=== PATIENT | female | born 1965 ===

== ENCOUNTER → 2023-10-31 | Outpatient (CLI) | payer OTHER ==
--- NOTE | 2023-11-02 09:42 | CTL ---
EXAMINATION TYPE: CT Low Dose Lung DATE OF EXAM: 10/31/2023 3:48 PM CLINICAL INDICATION:Female, 58 years old with history of Z12.2 LUNG SCREENING; Former smoker, quit x2 mo. 1.5 PPD x40yrs. , history of tobacco use. COMPARISON: None. TECHNIQUE: Multiple axial non-contrast scans were obtained from approximately the lung apices through the upper abdomen. Coronal and sagittal reformatted images were obtained. Low dose technique was uti lized. CT DLP: 67.0 mGycm, Automated exposure control for dose reduction was used. CT Contrast: Contrast used: None Oral contrast used: None FINDINGS: ======== Lack of intravenous contrast and low dose technique limits the evaluation of the vascular and soft ti ssue structures. LUNGS: No evidence of pulmonary fibrosis. No evidence of focal consolidation, pneumothorax or pleural effusion. Centrilobular emphysema changes. Nodules: RUL: Calcified granuloma anteriorly series 4 image 100 RML: 3 mm series 5 image 38. RLL: None. ROBEL: Suspected scarring changes series 5 image 10r 3 mm series 5 image 38, 3 mm image 38 LLL: 2 mm image 47. AIRWAY: Patent and unremarkable. HEART: Size within normal limits. MEDIASTINUM: No gross evidence of adenopathy. VASCULATURE: No aortic aneurysm. MUSCULOSKELETAL: No acute osseous abnormalities SOFT TISSUES/LYMPH NODES: Unremarkable. LOWER NECK: No significant findings. UPPER ABDOMEN: Right renal cyst measuring up to 43 mm. IMPRESSION: 1. No clinically significant pulmonary nodules. 2. Moderate emphysema. CT LUNG RAD AND CT CHEST RECOMMENDATION: Lung-Rad 2 Benign Appearance or Behavior: Continue annual sc reening with LDCT in 12 months. S Modifier (other clinically significant findings): None Recommend smoking cessation (if current smoker), or continuation of smoking cessation (if prior smoke r). Annual screening for lung cancer with low-dose computed tomography is recommended in adults ages 55 to 77 years who have a 30 pack-year smoking history and currently smoke or have quit within the pa st 15 years. Screening should be discontinued once a person has not smoked for 15 years or develops a health problem that substantially limits life expectancy or the ability or willingness to have curat madelyn lung surgery. Lung rads 2021 [email or web address]
--- NOTE | 2023-11-04 10:51 | MM ---
Reason for Exam: Screening (asymptomatic). Patient History: Patient has no children. Postmenopausal. Risk Values: Paulette 5 year model risk: 1.4%. NCI Lifetime model risk: 7.8%. Tissue Density: The breasts are heterogeneously dense, which may obscure small masses. Findings: Analyzed By CAD. Right breast: There is no suspicious group of microcalcifications or new suspicious mass. Left breast: There is no suspicious group of microcalcifications or new suspicious mass. Overall Assessment: Negative, BI-RAD 1 Management: Screening Mammogram of both breasts in [address] [facility] will attempt to contact patient to return for supplemental views and ultrasound if indicated. Patient should continue monthly self-breast exams. A clinical breast exam by your physician is recommended on an annual basis. This exam should not preclude additional follow-up of suspicious palpable abnormalities. Note on Paulette scores and lifetime risk: 1. A Paulette score greater than 3% is considered moderate risk. If this is the case, consider specialist referral to assess eligibility for a risk reducing agent. 2. If overall lifetime risk for the development of breast cancer is 20% or higher, the patient may qualify for future screening with alternating mammogram and breast MRI. Electronically signed and approved by: Didier Gabriel DO
== END | disposition home or self-care (01) ==
LOC: RADMAMWWP 15:01
PROVIDERS: ATTEND Family Medicine
DX: Z12.31 Encounter for screening mammogram for malignant neoplasm of breast (principal); R92.333 Mammographic heterogeneous density, bilateral breasts; Z78.0 Asymptomatic menopausal state; J43.9 Emphysema, unspecified
CPT/HCPCS: 71271; 77067

== ENCOUNTER → 2023-11-04 | Outpatient (CLI) | payer OTHER ==
--- NOTE | 2023-11-04 18:30 | CA ---
Exercise Stress Test Report Name: Bryanna Peralta Exam Date: 11/04/2023 08:54 Exam Location: [place] Stress Ht (in): 60 Wt (lb): 128 BSA: 1.54 Ordering Phys: Ramses Ivan MD Referring Phys: Karen Palacios PAC Technologist: Parminder Dover Age: 58 Gender: F : 1965 Procedure CPT: Indications: R07.89 chest pain ICD-10 Codes: Patient History: Medications: Meds past 24 hrs: Pretest Chest Pain: STRESS TEST Esau Protocol Exercise Duration (min:sec): 06:[address] Depressions (mm): Angina Score: Polanco Score: Resting HR (bpm): 90 Peak HR (bpm): 143 Resting BP (mmHg): 98 / 65 Peak BP (mmHg): 173 / 66 MPHR: 162 Target HR: 138 % MPHR: 88 METS: 7.4 Total Dose: Peak Dose: Atropine: Double Product: 53310 BP Response: Stress Termination: Reached target heart rate Stress Symptoms: No chest pain or symptoms Stress Summary: ECG ANALYSIS Resting ECG: Stress ECG: CONCLUSIONS Average exercise capacity No ECG evidence for ischemia Normal heart rate and blood pressure response No symptoms Impression no ECG evidence for ischemia Dr. David Thorpe MD (Electronically Signed) Final Date: 04 November 2023 18:29
== END | disposition home or self-care (01) ==
LOC: RADNMMAIN 08:18
PROVIDERS: ATTEND Family Medicine
DX: R07.89 Other chest pain (principal)
CPT/HCPCS: 93017

== ENCOUNTER 2023-12-06 12:20 | Day surgery (SDC) | payer OTHER ==
[2023-12-06 13:22] VITALS: TEMP 97.8
[2023-12-06] MEDS: IV FLUID CONTINUATION 1,000 ML IV ONE (13:26)
[2023-12-06] MEDS: LACTATED RINGERS 1,000 ML IV SCH (13:28)
[2023-12-06] MEDS ORDERED: PROPOFOL 10 MG/ML 20 ML VIAL IV ONE (14:44)
--- NOTE | 2023-12-06 15:02 | P.PCN ---
Date of Procedure: 12/06/23 Procedure(s) Performed: BRIEF HISTORY: Patient is a 58-year-old pleasant white female scheduled for an elective colonoscopy as a part of screening for colon cancer. PROCEDURE PERFORMED: Colonoscopy. PREOPERATIVE DIAGNOSIS: Screening for colon cancer. IV sedation per Anesthesia. PROCEDURE: After informed consent was obtained, the patient, was brought into the endoscopy unit. IV sedation was administered by Anesthesia under continuous monitoring. Digital rectal examination was normal. Initially the Olympus CF-160 flexible video colonoscope was then inserted in the rectum, gradually advanced into the cecum without any difficulty. Careful examination was performed as the scope was gradually being withdrawn. Ileocecal valve and the appendiceal orifice were visualized and appeared normal. Prep was excellent. Mucosa of the cecum, ascending colon, transverse colon, descending colon, sigmoid colon, and rectum appeared normal. Retroflexion was performed in the rectum and no lesions were seen. The patient tolerated the procedure well. IMPRESSION: Normal-appearing colon from rectum to cecum with no evidence of colorectal neoplasia. RECOMMENDATIONS: Findings of this examination were discussed with the patient as well as her family. She was advised to have repeat screening colonoscopy in 10 years.
[2023-12-06 15:26] VITALS: BP 119/74; PULSE 67; RESP 20
== END 2023-12-06 16:05 | disposition home or self-care (01) ==
LOC: ORWHC2ENDO 12:20
PROVIDERS: ATTEND Internal Medicine Gastroenterology
DX: Z12.11 Encounter for screening for malignant neoplasm of colon
CPT/HCPCS: 45378; 81025